=== PATIENT | female | born 1980 | race Caucasian/White ===

== ENCOUNTER 2022-08-15 06:49 | Inpatient (IN) | payer MEDICARE, SELFPAY ==
[2022-08-15 07:10] VITALS: BP 122/81; PULSE 77; RESP 20; BMI 23.9
--- NOTE | 2022-08-15 07:15 | PC.NURSE ---
pt refusing vitals for O2 and temp because she does not want them touching her skin - pt wearing gloves with soap all over over them. continues to be hyper-verbal about how she showered all the radioactive isotopes off her
--- NOTE | 2022-08-15 08:29 | ED.PSYCH ---
HPI - Psych General Chief Complaint: Psychiatric Symptoms Stated Complaint: Radioactive isotope sore killing me Time Seen by Provider: 08/15/22 08:15 Source: patient Limitations: altered mental status History of Present Illness HPI Narrative: 41-year-old female with reported history of bipolar disease, questionable diabetes presents with concerns of being poisoned by radioactive isotope is. On my evaluation, patient is having loose associations, disorganized thought. Patient reports that animal diet at her window due to poisonous dust. She said ?my foot is about to fall off due to rate on and radioactive isotope. ? Patient denies suicidal or homicidal ideation. She denies any drug or alcohol abuse. Patient says she is taking perphenazine which is given by her to her. She reports if she takes Haldol show want to kill herself. History is significantly limited due to her acute psychosis. Patient reports symptoms started 1 day ago. There are no clear relieving or exacerbating features. Related Data Allergies Allergy/AdvReac Type Severity Reaction Status Date / Time risperidone [From Risperdal] Allergy Mild OCULARGYRO Unverified 11/04/19 15:24 CRISIS Review of Systems Review of Systems: CONSTITUTIONAL: Denies weight loss, fever and chills. HEENT: Denies changes in vision and hearing. RESPIRATORY: Denies SOB and cough. CV: Denies palpitations no CP. GI: Denies abdominal pain, nausea, vomiting and diarrhea. : Denies dysuria and urinary frequency. MSK: Denies myalgia and joint pain. SKIN: Denies rash and pruritus. NEUROLOGICAL: Denies headache and syncope. PSYCHIATRIC: Denies recent changes in mood. Denies anxiety and depression. All other ROS are negative unless in HPI [facility] Social History Social History Alcohol intake: current Smoked in Last 30 Days: Yes Use of substances other than those prescribed or required for medical reasons: Unknown Advance Directives: No Advance Directives Information Provided: No Healthcare Proxy: No Guardian: No Patient : No Physical Exam Vital Signs: Vital Signs: Last Vital Signs Pulse 77 08/15/22 07:10 Resp 20 08/15/22 07:10 BP 122/81 08/15/22 07:10 BMI result Body Mass Index 23.9 GEN: Well developed, no acute distress, alert, oriented HEENT: Normocephalic, atraumatic, normal external ears, nose appears normal, no oropharyngeal edema or exudates Eyes: Normal to appearance Neck: Supple, no lymphadenopathy Respiratory: Talks in complete sentences, no respiratory distress, clear to auscultation bilaterally Cardiovascular: Regular rate and rhythm, no murmurs rubs or gallops Abdomen: Soft, nontender, nondistended, no guarding, no rebound Back: No CVA tenderness Extremities: No clubbing cyanosis or edema Neurologic: No focal neurologic deficits, cranial nerves 2-12 intact, strength is 5/5 bilaterally Skin: No rash , Band-Aids on face Psych: Delusional, rapid speech, loosely organized, radical speech, no SI or HI Course Course Course Narrative: Patient presents with acute psychosis. Is quite possible that she has an underlying diagnosis. She reports a diagnosis of bipolar disorder. In any event, she is acutely psychotic. She has been given Zyprexa. I believe patient will warrant emergent psychiatric hospitalization. She is medically cleared at this time. I will place the patient in physician observation at 10:35 a.m. Reevaluation(s) Reevaluation #1: Patient will be signed out to the oncoming provider. Patient is pending care team evaluation. Disposition pending their determination for hospitalization Time: 15:56 Medications Administered Discontinued Medications Generic Name Dose Route Start Last Admin Trade Name Freq PRN Reason Stop Dose Admin Olanzapine 10 mg 08/15/22 08:21 08/15/22 12:28 Olanzapine 10 Mg Tablet PO 08/15/22 08:22 Not Given ONCE ONE Medical Decision Making Medical Decision Making [facility] Narrative: 41-year-old female with likely psychiatric history presents with acute psychosis. Patient is clearly delusional, rapid speech. Patient's diagnoses could include schizophrenia, bipolar, schizoaffective disorder, drug-induced psychosis. I will provide the patient with a lancet pain till mg orally if patient is unwilling to take the medication she may require intramuscular injection. This is being done to significantly improve her active symptoms. Will make sure she is medically cleared for psychiatric evaluation. She will have routine laboratory analysis. I will put in for care team consultation. Which she will stay in our Behavioral Health Unit. Differential Diagnosis Differential Diagnoses: The differential diagnosis associated with the presentation includes (See above) Acute psychosis Admission/Observation Consideration of admission/observation: Escalation of care including admission/observation considered (Patient will likely need hospitalization) Consult Healthcare Provider Management of the patient was discussed with: Behavioral Health Provider Lab Data MDM Lab Attestation statement: I reviewed the patient's lab results. 08/15/22 09:01 08/15/22 09:01 Labs: Lab Results 08/15/22 08/15/22 08/15/22 Range/Units 08:30 08:30 08:30 WBC (4.8-10.8) X10*3/uL RBC (4.20-5.50) X10*6/uL Hgb (12.0-16.0) g/dl Hct (37.0-47.0) % MCV (80.0-98.0) fL MCH (27.0-33.0) pg MCHC (31.0-35.0) g/dl RDW (11.0-16.0) % Plt Count (160-400) X10*3/uL MPV (9.4-12.3) fL Immature Gran % (Auto) (0.0-0.4) % Neut % (Auto) (45-73) % Lymph % (Auto) (20-40) % Brewster % (Auto) (2-11) % Eos % (Auto) (0-4) % Baso % (Auto) (0-2) % Lymph # (Auto) (1.2-4.9) X10*3/uL Brewster # (Auto) (0.1-1.2) X10*3/uL Eos # (Auto) (0.0-0.4) X10*3/uL Baso # (Auto) (0.0-0.2) X10*3/uL Abs Immat Gran (auto) (0.00-0.03) X10*3/uL Absolute Neuts (auto) (2.0-8.3) x10*3/uL Absolute Nucleated RBC (0.0-0.012) X10*3/uL Nucleated RBC % (auto) (0.0-0.2) /100WBC Sodium (135-145) mmol/L Potassium (3.3-5.1) mmol/L Chloride (96-108) mmol/L Carbon Dioxide (22-29) mmol/L Anion Gap (12-20) BUN (9-16) mg/dL Creatinine (0.5-1.4) mg/dL Estim Creat Clear Calc Estimated GFR Random Glucose (60-115) mg/dL Calcium (8.4-10.2) mg/dL Total Bilirubin (0.0-1.0) mg/dL AST (5-31) U/L ALT (0-31) U/L Alkaline Phosphatase (39-117) U/L Total Protein (6.5-8.0) g/dL Albumin (3.5-5.0) g/dL Urine Color Yellow Urine Appearance Clear Urine pH 5.5 (5.0-9.0) Ur Specific Curlew 1.025 (1.005-1.025) Urine Protein Trace (Neg-Trace) mg/dL Urine Glucose (UA) Negative (Negative) mg/dL Urine Ketones 40 (Negative) mg/dL Urine Blood Large (3+) H (Negative) Urine Nitrite Negative (Negative) Ur Leukocyte Esterase Negative (Negative) Urine RBC >20 H (0-2) /HPF Urine WBC 0-5 (0-5) /HPF Ur Squamous Epith Cells 6-10 (0-2) /HPF Urine Bacteria None Seen (None Seen) Hyaline Casts 0-2 (0-2) /LPF Urine Test NEGATIVE (NEGATIVE) Salicylates (15-30) mg/dL Urine Opiates Screen Not Detected (Not Detect) Urine Fentanyl Screen Not Detected (Not Detect) Acetaminophen (<30) mcg/mL Ur Barbiturates Screen Not Detected (Not Detect) Ur Phencyclidine Scrn Not Detected (Not Detect) Ur Amphetamines Screen Not Detected (Not Detect) U Benzodiazepines Scrn Not Detected (Not Detect) Urine Cocaine Screen Not Detected (Not Detect) U Marijuana (THC) Screen Not Detected (Not Detect) Ethyl Alcohol mg/dL COVID-19 ([facility]) (Negative) COVID-19 Clin Com 08/15/22 08/15/22 08/15/22 Range/Units 09:01 09:01 09:01 WBC 6.9 (4.8-10.8) X10*3/uL RBC 3.96 L (4.20-5.50) X10*6/uL Hgb 12.1 (12.0-16.0) g/dl Hct 36.1 L (37.0-47.0) % MCV 91.2 (80.0-98.0) fL MCH 30.6 (27.0-33.0) pg MCHC 33.5 (31.0-35.0) g/dl RDW 12.4 (11.0-16.0) % Plt Count 240 (160-400) X10*3/uL MPV 9.9 (9.4-12.3) fL Immature Gran % (Auto) 0.3 (0.0-0.4) % Neut % (Auto) 75.9 H (45-73) % Lymph % (Auto) 15.9 L (20-40) % Brewster % (Auto) 7.1 (2-11) % Eos % (Auto) 0.4 (0-4) % Baso % (Auto) 0.4 (0-2) % Lymph # (Auto) 1.1 L (1.2-4.9) X10*3/uL Brewster # (Auto) 0.5 (0.1-1.2) X10*3/uL Eos # (Auto) 0.0 (0.0-0.4) X10*3/uL Baso # (Auto) 0.0 (0.0-0.2) X10*3/uL Abs Immat Gran (auto) 0.02 (0.00-0.03) X10*3/uL Absolute Neuts (auto) 5.2 (2.0-8.3) x10*3/uL Absolute Nucleated RBC 0.000 (0.0-0.012) X10*3/uL Nucleated RBC % (auto) 0.0 (0.0-0.2) /100WBC Sodium 141 (135-145) mmol/L Potassium 4.2 (3.3-5.1) mmol/L Chloride 108 (96-108) mmol/L Carbon Dioxide 23 (22-29) mmol/L Anion Gap 14 (12-20) BUN 14 (9-16) mg/dL Creatinine 0.84 (0.5-1.4) mg/dL Estim Creat Clear Calc TNP Estimated GFR > 60 Random Glucose 90 (60-115) mg/dL Calcium 9.8 (8.4-10.2) mg/dL Total Bilirubin 0.9 (0.0-1.0) mg/dL AST 29 (5-31) U/L ALT 7 (0-31) U/L Alkaline Phosphatase 42 (39-117) U/L Total Protein 6.8 (6.5-8.0) g/dL Albumin 4.2 (3.5-5.0) g/dL Urine Color Urine Appearance Urine pH (5.0-9.0) Ur Specific Curlew (1.005-1.025) Urine Protein (Neg-Trace) mg/dL Urine Glucose (UA) (Negative) mg/dL Urine Ketones (Negative) mg/dL Urine Blood (Negative) Urine Nitrite (Negative) Ur Leukocyte Esterase (Negative) Urine RBC (0-2) /HPF Urine WBC (0-5) /HPF Ur Squamous Epith Cells (0-2) /HPF Urine Bacteria (None Seen) Hyaline Casts (0-2) /LPF Urine Test (NEGATIVE) Salicylates (15-30) mg/dL Urine Opiates Screen (Not Detect) Urine Fentanyl Screen (Not Detect) Acetaminophen (<30) mcg/mL Ur Barbiturates Screen (Not Detect) Ur Phencyclidine Scrn (Not Detect) Ur Amphetamines Screen (Not Detect) U Benzodiazepines Scrn (Not Detect) Urine Cocaine Screen (Not Detect) U Marijuana (THC) Screen (Not Detect) Ethyl Alcohol < 10 mg/dL COVID-19 ([facility]) Negative (Negative) COVID-19 Clin Com See Note 08/15/22 Range/Units 09:01 WBC (4.8-10.8) X10*3/uL RBC (4.20-5.50) X10*6/uL Hgb (12.0-16.0) g/dl Hct (37.0-47.0) % MCV (80.0-98.0) fL MCH (27.0-33.0) pg MCHC (31.0-35.0) g/dl RDW (11.0-16.0) % Plt Count (160-400) X10*3/uL MPV (9.4-12.3) fL Immature Gran % (Auto) (0.0-0.4) % Neut % (Auto) (45-73) % Lymph % (Auto) (20-40) % Brewster % (Auto) (2-11) % Eos % (Auto) (0-4) % Baso % (Auto) (0-2) % Lymph # (Auto) (1.2-4.9) X10*3/uL Brewster # (Auto) (0.1-1.2) X10*3/uL Eos # (Auto) (0.0-0.4) X10*3/uL Baso # (Auto) (0.0-0.2) X10*3/uL Abs Immat Gran (auto) (0.00-0.03) X10*3/uL Absolute Neuts (auto) (2.0-8.3) x10*3/uL Absolute Nucleated RBC (0.0-0.012) X10*3/uL Nucleated RBC % (auto) (0.0-0.2) /100WBC Sodium (135-145) mmol/L Potassium (3.3-5.1) mmol/L Chloride (96-108) mmol/L Carbon Dioxide (22-29) mmol/L Anion Gap (12-20) BUN (9-16) mg/dL Creatinine (0.5-1.4) mg/dL Estim Creat Clear Calc Estimated GFR Random Glucose (60-115) mg/dL Calcium (8.4-10.2) mg/dL Total Bilirubin (0.0-1.0) mg/dL AST (5-31) U/L ALT (0-31) U/L Alkaline Phosphatase (39-117) U/L Total Protein (6.5-8.0) g/dL Albumin (3.5-5.0) g/dL Urine Color Urine Appearance Urine pH (5.0-9.0) Ur Specific Curlew (1.005-1.025) Urine Protein (Neg-Trace) mg/dL Urine Glucose (UA) (Negative) mg/dL Urine Ketones (Negative) mg/dL Urine Blood (Negative) Urine Nitrite (Negative) Ur Leukocyte Esterase (Negative) Urine RBC (0-2) /HPF Urine WBC (0-5) /HPF Ur Squamous Epith Cells (0-2) /HPF Urine Bacteria (None Seen) Hyaline Casts (0-2) /LPF Urine Test (NEGATIVE) Salicylates < 5.0 L (15-30) mg/dL Urine Opiates Screen (Not Detect) Urine Fentanyl Screen (Not Detect) Acetaminophen < 17 (<30) mcg/mL Ur Barbiturates Screen (Not Detect) Ur Phencyclidine Scrn (Not Detect) Ur Amphetamines Screen (Not Detect) U Benzodiazepines Scrn (Not Detect) Urine Cocaine Screen (Not Detect) U Marijuana (THC) Screen (Not Detect) Ethyl Alcohol mg/dL COVID-19 ([facility]) (Negative) COVID-19 Clin Com External Record Review None available Prescription Management I considered prescription management with: Other (Anti psychotic) Discharge Plan Discharge Clinical Impression: Acute psychosis Patient Disposition: Still a Patient Interventions: Roosevelt-Suicide Risk Severity Scale Last Done: 08/15/22 09:48
[2022-08-15 08:42] LABS: Appearance Urine Clear; Color Urine Yellow; Glucose Urine UA Negative (Negative); Leukocyte Esterase Urine Negative (Negative); Nitrite Urine Negative (Negative); PH 5.5 (5.0-9.0); Specific Gravity - Urine 1.025 (1.005-1.025); UMIC TRIGGER UA YES; Urine Blood Large (3+) (Negative); Urine Ketones 40 mg/dL (Negative); Urine Protein Trace mg/dL (Neg-Trace)
[2022-08-15 08:43] LABS: UPreg QC Valid YES; Urine Pregnancy NEGATIVE (NEGATIVE)
[2022-08-15 08:45] LABS: Bacteria Urine None Seen (None Seen); Hyaline Casts Urine 0-2 /LPF (0-2); RBC Urine >20 /HPF (0-2); WBC Urine 0-5 /HPF (0-5)
[2022-08-15 08:47] LABS: Amphetamine Screen Urine Not Detected (Not Detect); Barbiturates, Urine Not Detected (Not Detect); Benzodiazepines Screen Urine Not Detected (Not Detect); Cannabinoid Screen Urine Not Detected (Not Detect); Cocaine Screen Urine Not Detected (Not Detect); Fentanyl, urine Not Detected (Not Detect); Opiate Screen Urine Not Detected (Not Detect); Phencyclidine Screen Urine Not Detected (Not Detect)
[2022-08-15 09:09] LABS: MANUAL DIFF FLAG NO
[2022-08-15 09:10] LABS: Basophils Percent Auto 0.4 % (0-2); Eosinophils Percent Auto 0.4 % (0-4); Hematocrit 36.1 % (37.0-47.0); Hemoglobin 12.1 g/dl (12.0-16.0); Imm Gran Abs Auto 0.02 X10*3/uL (0.00-0.03); Imm Gran Pct Auto 0.3 % (0.0-0.4); Lymphocytes Absolute Auto 1.1 X10*3/uL (1.2-4.9); Lymphocytes Percent Auto 15.9 % (20-40); Mean Corpuscular HGB Conc 33.5 g/dl (31.0-35.0); Mean Corpuscular Hemoglobin 30.6 pg (27.0-33.0); Mean Corpuscular Volume 91.2 fL (80.0-98.0); Mean Platelet Volume 9.9 fL (9.4-12.3); Monocytes Absolute Auto 0.5 X10*3/uL (0.1-1.2); Monocytes Percent Auto 7.1 % (2-11); Neutrophils Absolute Auto 5.2 x10*3/uL (2.0-8.3); Neutrophils Percent Auto 75.9 % (45-73); Platelet Count 240 X10*3/uL (160-400); Red Blood Count 3.96 X10*6/uL (4.20-5.50); Red Cell Distribution Width 12.4 % (11.0-16.0); White Blood Count 6.9 X10*3/uL (4.8-10.8)
--- NOTE | 2022-08-15 09:13 | PC.NURSE ---
Pt resting quietly in bed on unit.
[2022-08-15 09:40] LABS: Acetaminophen LAB < 17 mcg/mL (<30); Alanine Aminotransferase 7 U/L (0-31); Albumin Level 4.2 g/dL (3.5-5.0); Alkaline Phosphatase 42 U/L (39-117); Anion Gap 14 (12-20); Aspartate Amino Transferase 29 U/L (5-31); Bilirubin Total 0.9 mg/dL (0.0-1.0); Blood Urea Nitrogen 14 mg/dL (9-16); COVID-19 Test Negative (Negative); Calcium 9.8 mg/dL (8.4-10.2); Carbon Dioxide 23 mmol/L (22-29); Chloride 108 mmol/L (96-108); Estimated Glomerular Filt Rate > 60; Ethanol < 10 mg/dL; Glucose Random 90 mg/dL (60-115); IDNOW Serial# 9DB6401D; Potassium 4.2 mmol/L (3.3-5.1); Salicylate < 5.0 mg/dL (15-30); Sodium 141 mmol/L (135-145); Total Protein 6.8 g/dL (6.5-8.0)
--- NOTE | 2022-08-15 09:52 | ECG_ITS ---
Test Reason : Psychiatric medications Blood Pressure : / mmHG Vent. Rate : 067 BPM Atrial Rate : 067 BPM P-R Int : 134 ms QRS Dur : 080 ms QT Int : 442 ms P-R-T Axes : 060 071 000 degrees QTc Int : 467 ms Normal sinus rhythm with sinus arrhythmia T wave abnormality, consider anterior ischemia Prolonged QT Abnormal ECG No previous ECGs available Referred By: Paco Carr Electronically Signed By:Andreas Cole
--- NOTE | 2022-08-15 11:59 | PC.NURSE ---
Pt resting comfortably on stretcher visualized on room camera.
--- NOTE | 2022-08-15 14:00 | PC.NURSE ---
Pt sleeping on stretcher, visualized on room camera.
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
--- NOTE | 2022-08-15 16:51 | MHC.CARE ---
patient is inpatient LOC, pending acceptance to unit @ [facility] [place]
--- NOTE | 2022-08-15 18:08 | PC.NURSE ---
Pt up walking on unit, frequent hand washing, restless, difficult to redirect. Lotion applied to hands for patient comfort. pt continuously c/o needing antimicrobial solution for her hands, hands assessed by RN. pt noted to have small reddened area from a ring that has been removed, hands are otherwise normal ROM and skin is very glossy.
[2022-08-15 20:19] VITALS: BP 113/76; PULSE 70; RESP 18; TEMP 36.6; O2SAT 97
[2022-08-15 23:00] VITALS: BP 117/84
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
[2022-08-16 08:45] VITALS: BP 134/62; PULSE 98; RESP 20
[2022-08-16 08:53] LABS: Estimated Average Glucose 94 mg/dL; Hemoglobin A1c % 4.9 %
[2022-08-16 09:17] LABS: Alanine Aminotransferase 6 U/L (0-31); Albumin Level 4.2 g/dL (3.5-5.0); Alkaline Phosphatase 41 U/L (39-117); Anion Gap 14 (12-20); Aspartate Amino Transferase 22 U/L (5-31); Bilirubin Total 0.8 mg/dL (0.0-1.0); Blood Urea Nitrogen 12 mg/dL (9-16); Calcium 9.6 mg/dL (8.4-10.2); Carbon Dioxide 23 mmol/L (22-29); Chloride 106 mmol/L (96-108); Cholesterol 173 mg/dL; Creatinine Clr Calc Pharmacy 55.1; Estimated Glomerular Filt Rate 58; Glucose Fasting 96 mg/dL (60-99); HDL Cholesterol 61 mg/dL; LDL Cholesterol Calculated 103 mg/dl; Potassium 5.4 mmol/L (3.3-5.1); Sodium 138 mmol/L (135-145); Total Protein 7.1 g/dL (6.5-8.0); Triglycerides 46 mg/dL
[2022-08-16 09:39] LABS: Folate 13.8 ng/mL (> or = 4.0); Vitamin B12 836 pg/mL (200-900)
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
[2022-08-16 16:13] LABS: CT PCR NOT DETECTED (Not Detect.); NG PCR NOT DETECTED (Not Detect.)
[2022-08-16 18:29] VITALS: BP 142/81; PULSE 84; TEMP 36.3
[2022-08-16] MEDS: Perphenazine 8 MG TABLET PO (20:27)
[2022-08-17 07:57] LABS: Anion Gap 11 (12-20); Blood Urea Nitrogen 12 mg/dL (9-16); Calcium 9.5 mg/dL (8.4-10.2); Carbon Dioxide 27 mmol/L (22-29); Chloride 109 mmol/L (96-108); Creatinine Clr Calc Pharmacy 62.2; Estimated Glomerular Filt Rate > 60; Glucose Random 92 mg/dL (60-115); Potassium 4.4 mmol/L (3.3-5.1); Sodium 143 mmol/L (135-145)
[2022-08-17 18:00] VITALS: BP 112/73; PULSE 73; TEMP 36.6; O2SAT 99
--- NOTE | 2022-08-17 18:25 | HO.PSYCHPN ---
Subjective Subjective Date of Service: 08/17/22 Reason For Visit: chris Interim History: Pt seen, discussed with team. Continues to focus on contamination issues, however, pt accepted her perphenazine last evening. Appears less fearful, better engaged today. Reports [place] her pet had a seizure in the home, and she believes the cause of the seizure is contamination. Medication Compliance: Intermittent Side effects from medications: No Attending Groups: No Review of Systems Acute medical concerns: No Medical Review of Systems: unchanged Mental Status Exam Mental Status Exam Patient Appearance: Appropriate and Bizarre Patient Orientation: Person Level of Consciousness: Alert Patient Behavior: Guarded, Talkative, Hyperactive, Suspicious, Restless, Anxious, Fearful, Resistive to Care, Avoidant, Distractible, Confused, Isolative, Good Eye Contact, Uncooperative, Impulsive and Pacing Mood Description: Suspicious, Withdrawn, Fearful, Hostile, Anxious, Labile, Nervous, Apprehensive and Expansive Affect Description: Labile and Expansive Patient Cognition Impaired: No Ability to Follow Directions: Fair Speech Pattern: Spontaneous Speech Memory Description: Remote Impaired, Senior Care Impaired, Episodic Impaired and Recent Impaired Hallucinations: None (?) Delusions: Being Controlled, Paranoid Ideation, Grandiose and Present Perceptual Disturbances: Depersonalization and Derealization Thought Process: Racing, Illogical, Distracted, Rumination, Goal Oriented, Evasive and Confusion Thought Content: positive for Flight of Ideas, positive for Racing, positive for [place], positive for Circumstantial, positive for Perseveration, positive for Preoccupation, positive for Thought Blocking, positive for Disorganized and positive for Hypochondriasis Depressive Symptoms: Increased Anxiety, Diff. Making Decisions, Increased Irritability, Loss of Int. in Activity, Feelings of Worthlessness and Unhappiness Abnormal Motor Activity Signs and Symptoms: Agitation Judgement: Poor Diagnostics Vital Signs (24Hr): Vital Signs - 24 hr 08/16/22 18:29 Temperature 97.3 F Pulse Rate 84 Blood Pressure 142/81 H BMI result Body Mass Index 23.9 Labs 08/15/22 09:01 08/17/22 07:06 Labs: Laboratory Results - last 48 hr 08/16/22 08/16/22 08/16/22 08:16 08:16 08:16 Sodium 138 Potassium 5.4 H D Chloride 106 Carbon Dioxide 23 Anion Gap 14 BUN 12 Creatinine 1.05 Estim Creat Clear Calc 55.1 Estimated GFR 58 Random Glucose Fasting Glucose 96 Estimat Average Glucose 94 Hemoglobin A1c % 4.9 Calcium 9.6 Total Bilirubin 0.8 AST 22 ALT 6 Alkaline Phosphatase 41 Total Protein 7.1 Albumin 4.2 Triglycerides 46 Cholesterol 173 LDL Cholesterol, Calc 103 HDL Cholesterol 61 Vitamin B12 836 Folate 13.8 TSH 1.40 Chlam trachomat DNA PCR N.gonorrhoeae DNA (PCR) 08/16/22 08/17/22 13:45 07:06 Sodium 143 Potassium 4.4 Chloride 109 H Carbon Dioxide 27 Anion Gap 11 L BUN 12 Creatinine 0.93 Estim Creat Clear Calc 62.2 Estimated GFR > 60 Random Glucose 92 Fasting Glucose Estimat Average Glucose Hemoglobin A1c % Calcium 9.5 Total Bilirubin AST ALT Alkaline Phosphatase Total Protein Albumin Triglycerides Cholesterol LDL Cholesterol, Calc HDL Cholesterol Vitamin B12 Folate TSH Chlam trachomat DNA PCR NOT DETECTED N.gonorrhoeae DNA (PCR) NOT DETECTED Medications Medications Current Medications Acetaminophen (Acetaminophen 325 Mg Tablet) 650 mg PO Q6H PRN PRN Reason: Headache/Pain Mild Scale (1-3) Al Hydroxide/Mg Hydroxide (Magnesium Hydrox/Alum Hydrox 30 Ml Oral.Susp) 30 ml PO Q6H PRN PRN Reason: Heartburn/Nausea Hydroxyzine HCl (Hydroxyzine Hcl 25 Mg Tablet) 25 mg PO Q6H PRN PRN Reason: Anxiety Lorazepam (Lorazepam 1 Mg Tablet) 1 mg PO Q4H PRN PRN Reason: agitation Magnesium Hydroxide (Milk Of Magnesia 30 Ml Oral.Susp) 30 ml PO DAILY PRN PRN Reason: Constipation Olanzapine (Olanzapine 5 Mg Tablet) 5 mg PO Q4H PRN PRN Reason: psychosis, agitation Perphenazine (Perphenazine 8 Mg Tablet) 8 mg PO BEDTIME RENÉ Last Admin: 08/16/22 20:27 Dose: 8 mg Trazodone HCl (Trazodone Hcl 50 Mg Tablet) 50 mg PO BEDTIME PRN PRN Reason: Insomnia Allergies Allergies Allergy/AdvReac Type Severity Reaction Status Date / Time risperidone [From Risperdal] Allergy Mild OCULARGYRO Unverified 11/04/19 15:24 CRISIS Assessment & Plan Assessment & Plan (1) Bipolar disorder: Status: Acute Code(s): F31.9 - Bipolar disorder, unspecified Assessment and Plan: 41 yo female, history of bipolar disorder with psychosis, presents with concerns related to being poisoned and having an infection, seeking diagnostics. Pt appears to have some open skin areas due to overuse of bleach, however, she will not allow exam of these areas of her feet and hands. Presents with guarded fear, distress and directive that she needs to leave to vacate her apartment, put her love seat in the trash, retrieve her bike, pay her storage unit and store her bike. She is unable to do a full intake today. Plan: Repeat BMP 08/17- K+5.4 today. Lorazepam 1 mg q4h prn Olanzapine 5 mg q4h prn Perphenazine 8 mg HS (Pt mentioned this as a scheduled med by hx and it is on her profile at 4mg HS, Feb 2022 Collateral Contacts Monitor, encourage alliance, medication compliance 08/17/22 K+ 4.4 Continue current regime and plan [place] attempts Informed Consent: further education needed Reason for continued inpatient stay Substantial Risk for: med/psych decompensation Time Spent With Patient Time: Total time managing care of this patient today ____ minutes.
[2022-08-17 20:10] VITALS: BP 136/78; PULSE 87; RESP 18
[2022-08-17] MEDS: Perphenazine 8 MG TABLET PO (20:37)
--- NOTE | 2022-08-17 22:03 | PC.NURSE ---
pt signed a 3 day on 08/17/22. 3 day is up 08/22/22. MD notified
--- NOTE | 2022-08-18 08:57 | HO.PSYCHPN ---
Subjective Subjective Date of Service: 08/18/22 Reason For Visit: chris Interim History: Pt talking on the phone, presents with improved organization, but with continued contamination fears and some lability. Medication Compliance: Yes Side effects from medications: No Review of Systems Medical Review of Systems: unchanged Mental Status Exam Mental Status Exam Patient Appearance: Appropriate and Bizarre Patient Orientation: Person Level of Consciousness: Alert Patient Behavior: Guarded, Talkative, Hyperactive, Suspicious, Restless, Anxious, Fearful, Resistive to Care, Avoidant, Distractible, Confused, Isolative, Good Eye Contact, Uncooperative, Impulsive and Pacing Mood Description: Suspicious, Withdrawn, Fearful, Hostile, Anxious, Labile, Nervous, Apprehensive and Expansive Affect Description: Labile and Expansive Patient Cognition Impaired: No Ability to Follow Directions: Fair Speech Pattern: Spontaneous Speech Memory Description: Remote Impaired, [facility] Impaired, Episodic Impaired and Recent Impaired Hallucinations: None (?) Delusions: Being Controlled, Paranoid Ideation, Grandiose and Present Perceptual Disturbances: Depersonalization and Derealization Thought Process: Racing, Illogical, Distracted, Rumination, Goal Oriented, Evasive and Confusion Thought Content: positive for Flight of Ideas, positive for Racing, positive for [place], positive for Circumstantial, positive for Perseveration, positive for Preoccupation, positive for Thought Blocking, positive for Disorganized and positive for Hypochondriasis Depressive Symptoms: Increased Anxiety, Diff. Making Decisions, Increased Irritability, Loss of Int. in Activity, Feelings of Worthlessness and Unhappiness Abnormal Motor Activity Signs and Symptoms: Agitation Judgement: Poor Diagnostics Vital Signs (24Hr): Vital Signs - 24 hr 08/17/22 20:10 08/17/22 18:00 Temperature 98 F Pulse Rate 87 73 Respiratory Rate 18 Blood Pressure 136/78 112/73 Pulse Oximetry 99 Oxygen Delivery Method Room Air BMI result Body Mass Index 23.9 Labs 08/15/22 09:01 08/17/22 07:06 Labs: Laboratory Results - last 48 hr 08/16/22 08/16/22 08/16/22 08:16 08:16 13:45 Sodium 138 Potassium 5.4 H D Chloride 106 Carbon Dioxide 23 Anion Gap 14 BUN 12 Creatinine 1.05 Estim Creat Clear Calc 55.1 Estimated GFR 58 Random Glucose Fasting Glucose 96 Calcium 9.6 Total Bilirubin 0.8 AST 22 ALT 6 Alkaline Phosphatase 41 Total Protein 7.1 Albumin 4.2 Triglycerides 46 Cholesterol 173 LDL Cholesterol, Calc 103 HDL Cholesterol 61 Vitamin B12 836 Folate 13.8 TSH 1.40 Chlam trachomat DNA PCR NOT DETECTED N.gonorrhoeae DNA (PCR) NOT DETECTED 08/17/22 07:06 Sodium 143 Potassium 4.4 Chloride 109 H Carbon Dioxide 27 Anion Gap 11 L BUN 12 Creatinine 0.93 Estim Creat Clear Calc 62.2 Estimated GFR > 60 Random Glucose 92 Fasting Glucose Calcium 9.5 Total Bilirubin AST ALT Alkaline Phosphatase Total Protein Albumin Triglycerides Cholesterol LDL Cholesterol, Calc HDL Cholesterol Vitamin B12 Folate TSH Chlam trachomat DNA PCR N.gonorrhoeae DNA (PCR) Medications Medications Current Medications Acetaminophen (Acetaminophen 325 Mg Tablet) 650 mg PO Q6H PRN PRN Reason: Headache/Pain Mild Scale (1-3) Al Hydroxide/Mg Hydroxide (Magnesium Hydrox/Alum Hydrox 30 Ml Oral.Susp) 30 ml PO Q6H PRN PRN Reason: Heartburn/Nausea Hydroxyzine HCl (Hydroxyzine Hcl 25 Mg Tablet) 25 mg PO Q6H PRN PRN Reason: Anxiety Lorazepam (Lorazepam 1 Mg Tablet) 1 mg PO Q4H PRN PRN Reason: agitation Magnesium Hydroxide (Milk Of Magnesia 30 Ml Oral.Susp) 30 ml PO DAILY PRN PRN Reason: Constipation Olanzapine (Olanzapine 5 Mg Tablet) 5 mg PO Q4H PRN PRN Reason: psychosis, agitation Perphenazine (Perphenazine 8 Mg Tablet) 8 mg PO BEDTIME RENÉ Last Admin: 08/17/22 20:37 Dose: 8 mg Trazodone HCl (Trazodone Hcl 50 Mg Tablet) 50 mg PO BEDTIME PRN PRN Reason: Insomnia Allergies Allergies Allergy/AdvReac Type Severity Reaction Status Date / Time risperidone [From Risperdal] Allergy Mild OCULARGYRO Unverified 11/04/19 15:24 CRISIS Assessment & Plan Assessment & Plan (1) Bipolar disorder: Status: Acute Code(s): F31.9 - Bipolar disorder, unspecified Assessment and Plan: 41 yo female, history of bipolar disorder with psychosis, presents with concerns related to being poisoned and having an infection, seeking diagnostics. Pt appears to have some open skin areas due to overuse of bleach, however, she will not allow exam of these areas of her feet and hands. Presents with guarded fear, distress and directive that she needs to leave to vacate her apartment, put her love seat in the trash, retrieve her bike, pay her storage unit and store her bike. She is unable to do a full intake today. Plan: Repeat BMP 08/17- K+5.4 today. Lorazepam 1 mg q4h prn Olanzapine 5 mg q4h prn Perphenazine 8 mg HS (Pt mentioned this as a scheduled med by hx and it is on her profile at 4mg HS, Feb 2022 Collateral Contacts Monitor, encourage alliance, medication compliance 08/18/22 Continue current regime and plan. Informed Consent: further education needed Reason for continued inpatient stay Substantial Risk for: med/psych decompensation Time Spent With Patient Time: Total time managing care of this patient today ____ minutes.
[2022-08-18 18:00] VITALS: PULSE 80; RESP 16; O2SAT 95
[2022-08-18] MEDS: Perphenazine 8 MG TABLET PO (21:04)
[2022-08-19 03:48] LABS: Syphilis Screen Nonreactive (Nonreactive)
[2022-08-19 04:26] LABS: HBS Num1 > 1000.00 mIU/mL (0-7.99); HBc Num1 0.11 S/CO (0.00-0.79); HBsAGNum1 0.36 S/CO (0.00-0.99); Hepatitis A Antibody IgM 0.19 Index (0-0.79); Hepatitis B Core Antibody Nonreactive (Nonreactive); Hepatitis B Surface Antigen Negative (Negative); ~HepC Num1 0.08 S/CO (0.00-0.79); ~Hepatitis A Antibody IgM Nonreactive (Nonreactive); ~Hepatitis B Surface Antibody REACTIVE (Nonreactive); ~Hepatitis C Antibody Nonreactive (Nonreactive)
[2022-08-19 08:32] VITALS: BP 97/52; PULSE 93; RESP 16; TEMP 36.7; O2SAT 97
--- NOTE | 2022-08-19 11:51 | HO.PSYCHPN ---
Subjective Subjective Date of Service: 08/19/22 Reason For Visit: chris Subjective Notes: Conditional Voluntary Healthcare Proxy: No Guardianship: No Medical Problems Affecting Mental Status: No Interim History: Remains with focus on contamination, germs, however, visable, out of her room, in the milieu, active with peers, talking on the phone. Showing improvement. Did file TDN. Assisted by team in payment of a bill today with success. Medication Compliance: Yes Side effects from medications: No Attending Groups: Yes Review of Systems Acute medical concerns: No Medical Review of Systems: unchanged Mental Status Exam Mental Status Exam Patient Appearance: Appropriate Patient Orientation: Person, Place and Situation Level of Consciousness: Alert Patient Behavior: Talkative, Suspicious, Distractible and Good Eye Contact Mood Description: Anxious, Labile, Nervous and Apprehensive Affect Description: Labile and Expansive Patient Cognition Impaired: No Ability to Follow Directions: Good Speech Pattern: Spontaneous Speech Memory Description: Episodic Impaired Hallucinations: None (?) Delusions: Paranoid Ideation, Grandiose and Present Perceptual Disturbances: Depersonalization and Derealization Thought Process: Racing, Illogical, Distracted, Rumination and Goal Oriented Thought Content: positive for Flight of Ideas, positive for Racing, positive for [place], positive for Circumstantial, positive for Perseveration, positive for Preoccupation, positive for Thought Blocking, positive for Disorganized and positive for Hypochondriasis Depressive Symptoms: Increased Anxiety Judgement: Fair Diagnostics Vital Signs (24Hr): Vital Signs - 24 hr 08/18/22 18:00 08/19/22 08:32 Temperature 98.1 F Pulse Rate 80 93 Respiratory Rate 16 16 Blood Pressure 97/52 L Pulse Oximetry 95 97 Oxygen Delivery Method Room Air Room Air BMI result Body Mass Index 23.9 Labs 08/15/22 09:01 08/17/22 07:06 Labs: Laboratory Results - last 48 hr 08/16/22 08/16/22 13:37 13:37 T.pallidum Ab (EIA) Nonreactive Hepatitis A IgM Ab Nonreactive Hep Bs Antigen Negative Hep Bs Antibody REACTIVE Hep B Core Total Ab Nonreactive Hepatitis C Ab (EIA) Nonreactive Medications Medications Current Medications Acetaminophen (Acetaminophen 325 Mg Tablet) 650 mg PO Q6H PRN PRN Reason: Headache/Pain Mild Scale (1-3) Al Hydroxide/Mg Hydroxide (Magnesium Hydrox/Alum Hydrox 30 Ml Oral.Susp) 30 ml PO Q6H PRN PRN Reason: Heartburn/Nausea Hydroxyzine HCl (Hydroxyzine Hcl 25 Mg Tablet) 25 mg PO Q6H PRN PRN Reason: Anxiety Lorazepam (Lorazepam 1 Mg Tablet) 1 mg PO Q4H PRN PRN Reason: agitation Magnesium Hydroxide (Milk Of Magnesia 30 Ml Oral.Susp) 30 ml PO DAILY PRN PRN Reason: Constipation Olanzapine (Olanzapine 5 Mg Tablet) 5 mg PO Q4H PRN PRN Reason: psychosis, agitation Perphenazine (Perphenazine 8 Mg Tablet) 8 mg PO BEDTIME RENÉ Last Admin: 08/18/22 21:04 Dose: 8 mg Trazodone HCl (Trazodone Hcl 50 Mg Tablet) 50 mg PO BEDTIME PRN PRN Reason: Insomnia Allergies Allergies Allergy/AdvReac Type Severity Reaction Status Date / Time risperidone [From Risperdal] Allergy Mild OCULARGYRO Unverified 11/04/19 15:24 CRISIS Assessment & Plan Assessment & Plan (1) Bipolar disorder: Status: Acute Code(s): F31.9 - Bipolar disorder, unspecified Assessment and Plan: 41 yo female, history of bipolar disorder with psychosis, presents with concerns related to being poisoned and having an infection, seeking diagnostics. Pt appears to have some open skin areas due to overuse of bleach, however, she will not allow exam of these areas of her feet and hands. Presents with guarded fear, distress and directive that she needs to leave to vacate her apartment, put her love seat in the trash, retrieve her bike, pay her storage unit and store her bike. She is unable to do a full intake today. Plan: Repeat BMP 08/17- K+5.4 today. Lorazepam 1 mg q4h prn Olanzapine 5 mg q4h prn Perphenazine 8 mg HS (Pt mentioned this as a scheduled med by hx and it is on her profile at 4mg HS, Feb 2022 Collateral Contacts Monitor, encourage alliance, medication compliance 08/18/22 Continue current regime and plan. 08/19/22 Continue current regime and plan. Informed Consent: understands and further education needed Reason for continued inpatient stay Substantial Risk for: rapid decompensation Time Spent With Patient Time: Total time managing care of this patient today ____ minutes.
[2022-08-19 18:00] VITALS: BP 117/55; PULSE 78; TEMP 36.1
[2022-08-19] MEDS: Perphenazine 8 MG TABLET PO (19:57)
[2022-08-20 09:05] VITALS: BP 106/58; PULSE 81; RESP 18; TEMP 36.6; O2SAT 98
--- NOTE | 2022-08-20 11:47 | HO.PSYCHPN ---
Subjective Subjective Date of Service: 08/20/22 Reason For Visit: chris Interim History: Patient seen and discussed. She reports fear of having HIV and transmitting it through sharing utensils and if she has a period and uses the toilet. Her thought process around this is illogical. She has derailment in her thought process. She talks about her gerbil dying and then talks about having HIV and wanting to be on Biktarvy . Patient pressured and illogical when discussing modes of HIV transmission. Out of her room, in the milieu, active with peers, talking on the phone. Showing some improvement. Did file TDN. Review of Systems Review of Systems CONSTITUTIONAL: Denies weight loss, fever and chills. HEENT: Denies changes in vision and hearing. RESPIRATORY: Denies SOB and cough. CV: Denies palpitations no CP. GI: Denies abdominal pain, nausea, vomiting and diarrhea. : Denies dysuria and urinary frequency. MSK: Denies myalgia and joint pain. SKIN: Denies rash and pruritus. NEUROLOGICAL: Denies headache and syncope. PSYCHIATRIC: Denies recent changes in mood. Denies anxiety and depression. All other ROS are negative unless in HPI Yes Unobtainable due to mental status Reports behavioral changes and Reports confusion Psychiatric: Reports anxiety, Reports behavioral changes, Reports confusion, Reports difficulty concentrating, Reports irritability, Reports anhedonia, Reports mood swings, Reports paranoia and Reports tactile hallucinations Mental Status Exam Mental Status Exam Patient Appearance: Appropriate Patient Orientation: Person, Place and Situation Level of Consciousness: Alert Patient Behavior: Talkative, Suspicious, Distractible and Good Eye Contact Mood Description: Anxious, Labile, Nervous and Apprehensive Affect Description: Labile and Expansive Patient Cognition Impaired: No Ability to Follow Directions: Good Speech Pattern: Spontaneous Speech Memory Description: Episodic Impaired Diagnostics Vital Signs (24Hr): Vital Signs - 24 hr 08/19/22 18:00 08/20/22 09:05 Temperature 97 F 97.8 F Pulse Rate 78 81 Respiratory Rate 18 Blood Pressure 117/55 L 106/58 L Pulse Oximetry 98 Oxygen Delivery Method Room Air BMI result Body Mass Index 23.9 Labs 08/15/22 09:01 08/17/22 07:06 Labs: Laboratory Results - last 48 hr 08/16/22 08/16/22 13:37 13:37 T.pallidum Ab (EIA) Nonreactive Hepatitis A IgM Ab Nonreactive Hep Bs Antigen Negative Hep Bs Antibody REACTIVE Hep B Core Total Ab Nonreactive Hepatitis C Ab (EIA) Nonreactive Medications Medications Current Medications Acetaminophen (Acetaminophen 325 Mg Tablet) 650 mg PO Q6H PRN PRN Reason: Headache/Pain Mild Scale (1-3) Al Hydroxide/Mg Hydroxide (Magnesium Hydrox/Alum Hydrox 30 Ml Oral.Susp) 30 ml PO Q6H PRN PRN Reason: Heartburn/Nausea Hydroxyzine HCl (Hydroxyzine Hcl 25 Mg Tablet) 25 mg PO Q6H PRN PRN Reason: Anxiety Lorazepam (Lorazepam 1 Mg Tablet) 1 mg PO Q4H PRN PRN Reason: agitation Magnesium Hydroxide (Milk Of Magnesia 30 Ml Oral.Susp) 30 ml PO DAILY PRN PRN Reason: Constipation Olanzapine (Olanzapine 5 Mg Tablet) 5 mg PO Q4H PRN PRN Reason: psychosis, agitation Perphenazine (Perphenazine 8 Mg Tablet) 8 mg PO BEDTIME RENÉ Last Admin: 08/19/22 19:57 Dose: 8 mg Trazodone HCl (Trazodone Hcl 50 Mg Tablet) 50 mg PO BEDTIME PRN PRN Reason: Insomnia Allergies Allergies Allergy/AdvReac Type Severity Reaction Status Date / Time risperidone [From Risperdal] Allergy Mild OCULARGYRO Unverified 11/04/19 15:24 CRISIS Assessment & Plan Assessment & Plan (1) Bipolar disorder: Status: Acute Code(s): F31.9 - Bipolar disorder, unspecified Assessment and Plan: 41 yo female, history of bipolar disorder with psychosis, presents with concerns related to being poisoned and having an infection, seeking diagnostics. Pt appears to have some open skin areas due to overuse of bleach, however, she will not allow exam of these areas of her feet and hands. Presents with guarded fear, distress and directive that she needs to leave to vacate her apartment, put her love seat in the trash, retrieve her bike, pay her storage unit and store her bike. She is unable to do a full intake today. Plan: Repeat [facility] 08/17- K+5.4 today. Lorazepam 1 mg q4h prn Olanzapine 5 mg q4h prn Perphenazine 8 mg HS (Pt mentioned this as a scheduled med by hx and it is on her profile at 4mg HS, Feb 2022 Collateral Contacts Monitor, encourage alliance, medication compliance 08/18/22 Continue current regime and plan. 08/19/22 Continue current regime and plan. 08/20/22 Continue current regime and plan. Reason for continued inpatient stay Substantial Risk for: inability to function and rapid decompensation Time Spent With Patient Time: Total time managing care of this patient today ____ minutes.
[2022-08-20 18:00] VITALS: BP 108/60; PULSE 88; RESP 16; TEMP 36.6; O2SAT 99
[2022-08-20] MEDS: Perphenazine 8 MG TABLET PO (21:43)
--- NOTE | 2022-08-21 16:51 | HO.PSYCHPN ---
Subjective Subjective Date of Service: 08/21/22 Reason For Visit: chris Subjective Notes: Conditional Voluntary and 3 Day Healthcare Proxy: No Guardianship: No Medical Problems Affecting Mental Status: No Interim History: Three day notice to 08/23/22. Taking medication, visable and interactive in the milieu. Improved, yet with some sx of being guarded, distant, apprehensive. Reports sleep appetite are back to normal. Medications are without SE she reports. Family, visiting. Pt well engaged and pleased they are here for support. Discussed her cleaning prior to admission and having skin irritation from bleach/ammonia and what she will do differently in the future. Discussed the effect this had on her pet gerbil and her concern for his health. Medication Compliance: Yes Side effects from medications: No Attending Groups: Intermittent Review of Systems Acute medical concerns: No Medical Review of Systems: unchanged Mental Status Exam Mental Status Exam Patient Appearance: Disheveled and Appropriate Patient Orientation: Person, Place, Time and Situation Level of Consciousness: Alert Patient Behavior: Talkative, Cooperative and Good Eye Contact Mood Description: Suspicious Affect Description: Constricted Patient Cognition Impaired: No Ability to Follow Directions: Good Speech Pattern: Spontaneous Speech Memory Description: Intact Hallucinations: None Delusions: Not Present Thought Process: Distracted and Goal Oriented Thought Content: positive for Goal Oriented Judgement: Good Diagnostics Vital Signs (24Hr): Vital Signs - 24 hr 08/20/22 18:00 Temperature 98 F Pulse Rate 88 Respiratory Rate 16 Blood Pressure 108/60 Pulse Oximetry 99 Oxygen Delivery Method Room Air BMI result Body Mass Index 23.9 Labs 08/15/22 09:01 08/17/22 07:06 Medications Medications Current Medications Acetaminophen (Acetaminophen 325 Mg Tablet) 650 mg PO Q6H PRN PRN Reason: Headache/Pain Mild Scale (1-3) Al Hydroxide/Mg Hydroxide (Magnesium Hydrox/Alum Hydrox 30 Ml Oral.Susp) 30 ml PO Q6H PRN PRN Reason: Heartburn/Nausea Hydroxyzine HCl (Hydroxyzine Hcl 25 Mg Tablet) 25 mg PO Q6H PRN PRN Reason: Anxiety Lorazepam (Lorazepam 1 Mg Tablet) 1 mg PO Q4H PRN PRN Reason: agitation Magnesium Hydroxide (Milk Of Magnesia 30 Ml Oral.Susp) 30 ml PO DAILY PRN PRN Reason: Constipation Olanzapine (Olanzapine 5 Mg Tablet) 5 mg PO Q4H PRN PRN Reason: psychosis, agitation Perphenazine (Perphenazine 8 Mg Tablet) 8 mg PO BEDTIME RENÉ Last Admin: 08/20/22 21:43 Dose: 8 mg Trazodone HCl (Trazodone Hcl 50 Mg Tablet) 50 mg PO BEDTIME PRN PRN Reason: Insomnia Allergies Allergies Allergy/AdvReac Type Severity Reaction Status Date / Time risperidone [From Risperdal] Allergy Mild OCULARGYRO Unverified 11/04/19 15:24 CRISIS Assessment & Plan Assessment & Plan (1) Bipolar disorder: Status: Acute Code(s): F31.9 - Bipolar disorder, unspecified Assessment and Plan: 41 yo female, history of bipolar disorder with psychosis, presents with concerns related to being poisoned and having an infection, seeking diagnostics. Pt appears to have some open skin areas due to overuse of bleach, however, she will not allow exam of these areas of her feet and hands. Presents with guarded fear, distress and directive that she needs to leave to vacate her apartment, put her love seat in the trash, retrieve her bike, pay her storage unit and store her bike. She is unable to do a full intake today. Plan: Repeat BMP 08/17- K+5.4 today. Lorazepam 1 mg q4h prn Olanzapine 5 mg q4h prn Perphenazine 8 mg HS (Pt mentioned this as a scheduled med by hx and it is on her profile at 4mg HS, Feb 2022 Collateral Contacts Monitor, encourage alliance, medication compliance 08/18/22 Continue current regime and plan. 08/19/22 Continue current regime and plan. 08/20/22 Continue current regime and plan. 08/21/22 Discharge 08/22 on a three day notice. Taking medications, engaged with peers, attending some groups. Patient educated on: therapeutic strategies Informed Consent: understands Reason for continued inpatient stay Substantial Risk for: rapid decompensation Time Spent With Patient Time: Total time managing care of this patient today ____ minutes.
[2022-08-21 18:19] VITALS: BP 91/58; PULSE 69; TEMP 36.1
[2022-08-21] MEDS: Perphenazine 8 MG TABLET PO (20:06)
[2022-08-22 09:15] VITALS: BP 120/56; PULSE 88; RESP 18; TEMP 36.1; O2SAT 98
--- NOTE | 2022-08-22 15:50 | PM.PSYDC ---
DS: Providers Provider Date of Service: 08/22/22 Date of admission: 08/15/22 22:17 Date of discharge: 08/22/22 Primary care physician: Cristhian España MD Admitting clinician: Debora Guidry Attending physician on admission: Jose Wilkins Attending physician on discharge: Jose Wilkins Discharging clinician: Debora Guidry DS: Diagnosis Discharge Diagnosis (1) Bipolar disorder: Status: Acute DS: Medications Discharge Medications Home Medications: Previous Rx's Medication Instructions Recorded perphenazine 8 mg tablet 8 mg PO BEDTIME #30 tabs 08/22/22 Mental Status Exam Mental Status Exam Patient Appearance: Appropriate Patient Orientation: Person, Place, Time and Situation Level of Consciousness: Alert Patient Behavior: Talkative, Cooperative and Good Eye Contact Mood Description: Constricted Affect Description: Constricted Patient Cognition Impaired: No Ability to Follow Directions: Good Speech Pattern: Spontaneous Speech Memory Description: Intact Hallucinations: None Delusions: Not Present Thought Process: Distracted and Goal Oriented Thought Content: positive for Goal Oriented Judgement: Good Data Data Completed and Pending Completed studies during hospitalization [Text1]: 08/16/22 08/16/22 08/16/22 08:16 08:16 08:16 Sodium 138 Potassium 5.4 H D Chloride 106 Carbon Dioxide 23 Anion Gap 14 BUN 12 Creatinine 1.05 Estim Creat Clear Calc 55.1 Estimated GFR 58 Random Glucose Fasting Glucose 96 Estimat Average Glucose 94 Hemoglobin A1c % 4.9 Calcium 9.6 Total Bilirubin 0.8 AST 22 ALT 6 Alkaline Phosphatase 41 Total Protein 7.1 Albumin 4.2 Triglycerides 46 Cholesterol 173 LDL Cholesterol, Calc 103 HDL Cholesterol 61 Vitamin B12 836 Folate 13.8 TSH 1.40 T.pallidum Ab (EIA) Chlam trachomat DNA PCR Hepatitis A IgM Ab Hep Bs Antigen Hep Bs Antibody Hep B Core Total Ab Hepatitis C Ab (EIA) N.gonorrhoeae DNA (PCR) 08/16/22 08/16/22 08/16/22 13:37 13:37 13:45 Sodium Potassium Chloride Carbon Dioxide Anion Gap BUN Creatinine Estim Creat Clear Calc Estimated GFR Random Glucose Fasting Glucose Estimat Average Glucose Hemoglobin A1c % Calcium Total Bilirubin AST ALT Alkaline Phosphatase Total Protein Albumin Triglycerides Cholesterol LDL Cholesterol, Calc HDL Cholesterol Vitamin B12 Folate TSH T.pallidum Ab (EIA) Nonreactive Chlam trachomat DNA PCR NOT DETECTED Hepatitis A IgM Ab Nonreactive Hep Bs Antigen Negative Hep Bs Antibody REACTIVE Hep B Core Total Ab Nonreactive Hepatitis C Ab (EIA) Nonreactive N.gonorrhoeae DNA (PCR) NOT DETECTED 08/17/22 07:06 Sodium 143 Potassium 4.4 Chloride 109 H Carbon Dioxide 27 Anion Gap 11 L BUN 12 Creatinine 0.93 Estim Creat Clear Calc 62.2 Estimated GFR > 60 Random Glucose 92 Fasting Glucose Estimat Average Glucose Hemoglobin A1c % Calcium 9.5 Total Bilirubin AST ALT Alkaline Phosphatase Total Protein Albumin Triglycerides Cholesterol LDL Cholesterol, Calc HDL Cholesterol Vitamin B12 Folate TSH T.pallidum Ab (EIA) Chlam trachomat DNA PCR Hepatitis A IgM Ab Hep Bs Antigen Hep Bs Antibody Hep B Core Total Ab Hepatitis C Ab (EIA) N.gonorrhoeae DNA (PCR) DS: Summary Hospital Course Hospital Course: Admission to adult psychiatry for exacerbation of bipolar disorder with psychosis. On admission, pt believed she had been poisoned as her pet gerbil had a seizure in her home. She was very concerned about contamination, germs and piyush disease. She had cleaned her home [employer] she reported with a combination of chemicals which caused irritation to her skin which resolved during the admission. Pt was reluctant to accept medicine, however did accept perphenazine 8 mg at HS. By history, she had taken 4 mg at HS and reported tolerance and efficacy. She was not willing to consider another agent. She did recompensate and left on a three day notice, declining to remain in patient for a longer period of time to enhance her recovery, which she was asked to consider. She did connect with family and , who visited with her during her admission. She is aware she is welcome to return for assessment if needed. Time spent discussing smoking cessation with patient: 3 to 10 minutes Status at Discharge Functional status at discharge: independent ambulation Overall status at discharge: patient is progressing back to baseline Time Spent with Patient Time attestation: Total time managing care of this patient today ____ minutes. Time spent: Greater than 30 minutes Discharge Plan Discharge Anticipated Discharge Date/Time: 08/22/22 12:44 Patient Disposition: Home, Self-Care Discharge Diagnosis: Bipolar Disorder Referrals: Dr. Harshal Stevens (Psychiatrist) [Other] - 09/05/22 9:30 am (Hospital discharge appointment with psychiatrist Patient should follow-up with psychiatrist as they did not respond with hospital discharge appointment prior to discharge ) Cristhian España MD [Primary Care Provider] - 1 Week Discharge Medications: New perphenazine 8 mg Tablet 8 mg PO BEDTIME Qty: 30 0RF Discharge Orders: Discharge Order (Routine); Ordered 08/22/22 Ordered By: Debora Guidry Diet: Advance to usual diet Activity on Discharge: As tolerated Stand Alone Forms: Patient Portal Discharge page, Community Support Care Plan Goals: Mood and Behavioral Stabilization Health Concerns: Mood and Behavioral Stabilization Plan of Treatment: Attend scheduled appointments Take medications as directed Assessment: Pt interviewed prior to discharge and found to be fully oriented and without SI/HI. Pt has insight and demonstrates good judgment in terms of wanting to pursue treatment. Pt is not in imminent risk of harm to self or others and has a safety plan that includes presenting to the closest ER or calling 911 if feeling unsafe. Pt has been observed closely by nursing and unit staff throughout admission. Pt has not engaged in any behaviors that suggest dangerousness to self or others and has demonstrated appropriate behaviors and impulse control. Discharge Date/Time: 08/22/22 11:53
== END 2022-08-22 11:53 | disposition home or self-care (01) | DRG 885 ==
LOC: HO.ED 14:53 → HO.PM5 22:22
PROVIDERS: Admitting Provider Social Worker; Emergency Provider Emergency Medicine; PCP Family Medicine; Visit Provider Clinical Nurse Specialist Psychiatric/Mental Health, Adult
DX: F31.9 Bipolar disorder, unspecified (principal); Z20.822 Contact with and (suspected) exposure to COVID-19; Z79.899 Other long term (current) drug therapy
CPT/HCPCS: 0353U; 36415; 80048; 80053; 80061; 80143; 80179; 80307; 81001; 81025; 82607; 82746; 83036; 84443; 85025; 86704; 86706; 86709; 86780; 86803; 87340; 87635; 93005; 99285

== ENCOUNTER → 2022-08-15 22:17 | Outpatient (BNV) | payer MEDICARE, SELFPAY | PROVIDERS: Admitting Provider Social Worker; Emergency Provider Emergency Medicine; PCP Family Medicine; Visit Provider Clinical Nurse Specialist Psychiatric/Mental Health, Adult | DX: F31.10 Bipolar disorder, current episode manic without psychotic features, unspecified (principal) | CPT/HCPCS: 90792; 99231; 99232; 99239 ==